=== PATIENT | male | born 1940 | race Hispanic/Latino ===

== ENCOUNTER 2017-06-05 14:40 | Outpatient (CLI) | payer MEDICARE, MEDICAID | END 2017-06-05 14:41 | disposition home or self-care (01) | LOC: BICRAD 14:40 | PROVIDERS: ATTEND Family Medicine | DX: M54.5 Low back pain (principal); M46.86 Other specified inflammatory spondylopathies, lumbar region | CPT/HCPCS: 72100 ==

== ENCOUNTER 2019-03-03 20:21 | Inpatient (IN) | payer MEDICARE, MEDICAID ==
[2019-03-03] MEDS ORDERED: Meclizine HCl 25 MG TAB ONE (21:11)
--- NOTE | 2019-03-03 21:13 | RAD ---
XR Chest 1 View Portable HISTORY: Dizziness, weakness COMPARISON: None FINDINGS: The heart size is normal. The lungs are well expanded without focal areas of consolidation, pneumothorax or pleural effusions. IMPRESSION: No radiographic evidence of acute cardiopulmonary process.
[2019-03-03 21:23] LABS: Hemoglobin 13.3 g/dL (14.0-18.0); Mean Corpuscular Hemoglobin 31.6 pg (27.0-31.0); Mean Corpuscular Volume 92.8 fL (78.0-98.0); Mean Platelet Volume 7.3 fL (7.4-10.4); Platelet Count 191 thou/uL (130-400); RBC Distribution Width 11.6 % (11.5-14.5); Red Blood Cell (RBC) Count 4.21 mill/uL (4.70-6.10); White Blood Cell (WBC) Count 14.3 thou/uL (4.8-10.8)
[2019-03-03 21:24] LABS: ALT (SGPT) 15 U/L (8-55); AST (SGOT) 24 U/L (5-34); Alkaline Phosphatase 57 U/L (40-110); Anion Gap 15 mmol/L (10-20); BUN (Urea Nitrogen) 19 mg/dL (8.4-25.7); Bilirubin, Total 0.8 mg/dL (0.2-1.2); Calc. Creatinine Clearance 0 mL/min (70-130); Carbon Dioxide 24 mmol/L (23-31); Chloride 100 mmol/L (98-107); Estimated GFR-MDRD 68; Glucose 230 mg/dL (83-110); Sodium 135 mmol/L (136-145)
[2019-03-03 21:26] LABS: CK (CPK) 415 U/L (30-200); Lipase 5 U/L (8-78)
[2019-03-03 21:32] LABS: Band 25 % (5-11); Lymphocytes 10 % (21-51); MDiff Complete? YES; Monocytes 3 % (0-10); Neutrophil 62 % (42-75)
--- NOTE | 2019-03-03 21:49 | CT ---
CT BRAIN WITHOUT CONTRAST: 03/03/19 HISTORY: Altered mental status with dizziness and weakness. FINDINGS: No evidence of acute infarct, hemorrhage, midline shift, or abnormal extra-axial fluid collections ar e seen. The ventricular size is appropriate and the basilar cisterns patent. The bony calvarium is i ntact. There is mucosal disease in the paranasal sinuses. IMPRESSION: No CT evidence of acute intracranial process. POS: OFF
[2019-03-03 22:18] LABS: Bilirubin Negative (Negative); Blood, Urine Negative (Negative); Clarity Clear (Clear); Glucose, Urine (Dipstick) >=1000 mg/dL (Negative); Leukocyte Negative Leu/uL (Negative); Nitrite Negative (Negative); Protein, Urine (Dipstick) 10 mg/dL (Neg-Trace)
[2019-03-03] MEDS ORDERED: cefTRIAXone\\ROCEPHIN 2 GM VIAL ONE (22:42)
[2019-03-03] MEDS ORDERED: Azithromycin 500 MG VIAL ONE (23:21)
[2019-03-03] MEDS ORDERED: hydrALAZINE 20 MG/ML VIAL SLOW IVP PRN (23:52)
[2019-03-03] MEDS ORDERED: Ondansetron PF 4 MG/2 ML Vial IVP PRN (23:52)
[2019-03-03] MEDS ORDERED: HumaLOG 300 UNITS/3 ML VIAL SC PRN ×2 (23:52)
[2019-03-03] MEDS ORDERED: Ibuprofen 200 MG TAB PO PRN (23:52)
[2019-03-03] MEDS ORDERED: Acetaminophen 500 MG TAB PO PRN (23:52)
[2019-03-03] MEDS ORDERED: Dextrose 5% in Water 1,000 ML IV PRN (23:52)
[2019-03-03] MEDS ORDERED: Dextrose 50% Abboject 50 ML SYRINGE SLOW IVP PRN (23:52)
[2019-03-03] MEDS ORDERED: Ondansetron ODT 4 MG TAB PO PRN (23:52)
[2019-03-03] MEDS ORDERED: Benzonatate 100 MG CAP PO PRN (23:52)
[2019-03-03] MEDS ORDERED: Sodium Chloride 0.9% 1,000 ML IV SCH (23:52)
[2019-03-04 00:55] VITALS: BMI 26.3
--- NOTE | 2019-03-04 02:26 | HP ---
PRIMARY CARE PROVIDER: Brooklyn Engle MD CHIEF COMPLAINT: General weakness, fever, and chills. HISTORY OF PRESENT ILLNESS: This is a 78-year-old male, who presents to [facility] Emergency Department with approximate 3-day history of generalized weakness, chills, fever, dizziness, and poor appetite. The patient's was apparently experiencing similar symptoms over the last several days. No specific travel history, recent fall, injury, or trauma. No recent antibiotic exposure or recent vaccinations. The patient has received the influenza vaccination, but unclear if pneumonia vaccination was received. The patient denied taking any home remedies and no other family members were reported ill other than his . The patient admits to persistent cough, general weakness, and poor appetite. In the emergency room, the patient underwent general evaluation including portable chest x-ray showing no acute infiltrate. The patient was noted with a mild leukocytosis and meeting SIRS criteria. The patient received IV azithromycin and Rocephin in addition to meclizine and intravenous normal saline. PAST MEDICAL HISTORY: 1. Diabetes mellitus, type 2. 2. Hypertension. 3. Hyperlipidemia. 4. Depression. PAST SURGICAL HISTORY: Status post cataract removal. CURRENT MEDICATIONS: 1. Metformin 1000 mg p.o. b.i.d. 2. Lisinopril 5 mg p.o. daily. 3. Lipitor 20 mg p.o. daily. 4. Lantus U-100 35 units subcutaneously daily. ALLERGIES: NO KNOWN DRUG ALLERGIES. FAMILY HISTORY: Positive for diabetes mellitus. SOCIAL HISTORY: The patient resides in [place], [place]. Accompanied by multiple children in the hospital. No current alcohol, tobacco, or illicit drug use. Functional of all activities of daily living. REVIEW OF SYSTEMS: CONSTITUTIONAL: Negative for weight loss or gain, ability to conduct usual activities. SKIN: Negative for rash, itching. EYES: Negative for double vision, pain. ENT/MOUTH: Negative for nose bleeding, neck stiffness, pain, tenderness. CARDIOVASCULAR: Negative for palpitations, dyspnea on exertion, orthopnea. RESPIRATORY: Negative for shortness of breath, wheezing, cough, hemoptysis, fever or night sweats. GASTROINTESTINAL: Negative for poor appetite, abdominal pain, heartburn, nausea, vomiting, constipation, or diarrhea. GENITOURINARY: Negative for urgency, frequency, dysuria, nocturia. MUSCULOSKELETAL: Negative for pain, swelling. NEUROLOGIC/PSYCHIATRIC: Negative for anxiety, depression. ALLERGY/IMMUNOLOGIC: Negative for skin rash, bleeding tendency. Otherwise negative except as stated per HPI. PHYSICAL EXAMINATION: VITAL SIGNS: On admission, blood pressure 114/56, pulse 120, respiratory rate 17, temperature 98.1 degrees Fahrenheit, O2 saturation 94% on room air. GENERAL APPEARANCE: This is a 78-year-old male, ill appearing, alert, responds to questions, in moderate distress. HEENT: Pupils are equal, round, reactive to light and accommodation. Extraocular muscles intact. No scleral icterus. No conjunctival injection. Nares patent. OP is clear. Oral mucosa dry. NECK: Supple. No cervical adenopathy. No thyromegaly. No carotid bruits. No JVD appreciated. Cervical spine with full active and passive range of motion. No meningeal signs noted. CHEST: Occasional coarse breath sound in the bases bilaterally. CARDIOVASCULAR: S1, S2 with tachycardia. No murmur, rub, or gallop appreciated. ABDOMEN: Rounded, soft, nontender, and nondistended. Bowel sounds are positive in all 4 quadrants. There is no hepatosplenomegaly. No abdominal bruits. No rebound or guarding appreciated. EXTREMITIES: Warm and dry with fair turgor. No clubbing, cyanosis, or asymmetric edema appreciated. Pulses palpable distally at the dorsalis pedis, posterior tibial, and popliteal arteries bilaterally. Capillary refill less than 2 seconds. NEUROLOGIC: Cranial nerves 2 through 12 are grossly intact. No focal or lateralizing signs appreciated. PERTINENT LABORATORY AND X-RAY FINDINGS: Sodium 135, potassium 4.0, chloride 100, CO2 of 24, BUN 19, creatinine 1.05, estimated GFR 68, glucose 230, lactic acid level 2.0, calcium 9.0. LFTs within normal limits. Serum ammonia level less than 12. Total CK 415. BNP 32. TSH 0.77. CBC showed a white blood cell count of 14.3, hemoglobin 13.3, hematocrit 39.1, platelet count 191 with 62% neutrophils, 25% bands. D-dimer 0.41. Urinalysis showed positive glucose and ketones. Beta-hydroxybutyrate level 0.63. Influenza A and B antigen, 03/03/2019, negative. Portable chest x-ray dated 03/03/2019, showed no acute cardiopulmonary process. CT of the brain without contrast dated 03/03/2019, showed no acute intracranial process. EKG dated 03/03/2019, by my interpretation shows a sinus tachycardia with heart rates in the low 100s. Normal R-wave progression noted in the precordial leads. Left axis deviation. No acute ST-T wave changes appreciated. ASSESSMENT AND PLAN: 1. Systemic inflammatory response syndrome (SIRS). The patient will be observed on the telemetry unit. Suspect viral etiology given patient's presentation; however, given bandemia, we will continue empiric antibiotic coverage with Rocephin and Zithromax. Continue IV fluid hydration with normal saline at 100 mL/h. Await final blood and urine culture results. 2. Acute bronchitis. See #1 above. Continue mucolytics as needed. 3. Acute kidney injury. Suspect secondary to dehydration. We will continue IV fluids with normal saline as outlined previously. Avoid nephrotoxic agents and limit contrast exposure. Hold lisinopril. 4. Diabetes mellitus type 2. Insulin sliding scale for reflexive coverage. Hold metformin. Serial Accu-Cheks before meals and at bedtime. ADA diet. 5. Generalized weakness. Suspect secondary to #1. Continue supportive management as outlined previously. Consider PT evaluation if not clinically improving in 24 hours. 6. Prophylaxis. SCDs while in bed. Pepcid 20 mg p.o. b.i.d. Pneumonia vaccination prior to discharge. CODE STATUS: Full. Surrogate medical decision maker is patient's daughter. Job ID: [id number]
[2019-03-04 05:16] LABS: Anion Gap 8 mmol/L (10-20); BUN (Urea Nitrogen) 15 mg/dL (8.4-25.7); Calc. Creatinine Clearance 73 mL/min (70-130); Calcium 8.6 mg/dL (7.8-10.44); Carbon Dioxide 27 mmol/L (23-31); Chloride 105 mmol/L (98-107); Estimated GFR-MDRD Greater than 90; Glucose 129 mg/dL (83-110); Potassium 3.6 mmol/L (3.5-5.1); Sodium 136 mmol/L (136-145)
[2019-03-04 05:25] LABS: Band 28 % (5-11); Hemoglobin 11.7 g/dL (14.0-18.0); Lymphocytes 7 % (21-51); MDiff Complete? YES; Mean Corpuscular Hemoglobin 31.7 pg (27.0-31.0); Mean Platelet Volume 7.2 fL (7.4-10.4); Monocytes 5 % (0-10); Neutrophil 60 % (42-75); Platelet Count 173 thou/uL (130-400); RBC Distribution Width 11.6 % (11.5-14.5); Red Blood Cell (RBC) Count 3.69 mill/uL (4.70-6.10); White Blood Cell (WBC) Count 15.7 thou/uL (4.8-10.8)
[2019-03-04] MEDS ORDERED: Lisinopril 5 MG TAB PO SCH (09:00)
[2019-03-04] MEDS ORDERED: Prevnar 13-Val Conj/PF 0.5 ML SYRINGE IM ONE (09:00)
[2019-03-04] MEDS: NS 0.9% w/ 20 MEQ KCL 1,000 ML/1,000 ML BAG IV SCH ×2 (09:56→23:47)
[2019-03-04] MEDS: Lactinex Tablet PO SCH (09:57)
[2019-03-04] MEDS: Azithromycin 250 MG TAB PO SCH (09:57)
[2019-03-04] MEDS: cefTRIAXone\\ROCEPHIN 2 GM in Sodium Chloride 0.9% 100 ML IVPB SCH (09:57)
[2019-03-04] MEDS: metFORMIN 500 MG TAB PO SCH ×2 (09:57→16:54)
[2019-03-04] MEDS: Famotidine 20 MG TAB PO SCH ×2 (09:57→20:31)
--- NOTE | 2019-03-04 11:30 | PDOC.HOSPP ---
- Subjective Encounter Date: 03/04/19 Encounter Time: 11:30 Subjective: Patient reports that he feels better. Continues to report intermittent lightheadedness. No N/V/D/C. No shortness of breath or chest pain. Does report cough with some white sputum. - Objective Vital Signs & Weight: Vital Signs (12 hours) Temp Pulse Resp BP BP Pulse Ox 03/04/19 11:15 97.9 F 94 15 113/58 L 94 L 03/04/19 10:05 93 L 03/04/19 08:26 97.6 F 103 H 16 111/55 L 93 L 03/04/19 03:52 99.2 F 107 H 18 109/59 L 95 03/03/19 23:48 99.8 F H 115 H 20 112/67 97 Weight Weight 148 lb 12.992 oz I&O: 03/03/19 03/04/19 03/05/19 06:59 06:59 06:59 Intake Total 150 880 Output Total 350 Balance -200 880 Result Diagrams: 03/04/19 04:33 03/04/19 04:33 Additional Labs: Accuchecks 03/04/19 03/03/19 03/03/19 10:27 21:11 20:26 POC Glucose 165 H 211 H 220 H Hospitalist ROS - Medication Medications: Active Medications Generic Name Dose Route Start Last Admin Trade Name Freq PRN Reason Stop Dose Admin Acidophilus 1 tab 03/04/19 09:00 03/04/19 09:57 Floranex PO 1 tab DAILY SANJAY Administration Azithromycin 500 mg 03/04/19 09:00 03/04/19 09:57 Zithromax PO 03/07/19 09:01 500 mg DAILY SANJAY Administration Benzonatate 100 mg 03/03/19 23:52 03/04/19 00:39 Tessalon PO 100 mg Q6H PRN Administration Cough Famotidine 20 mg 03/04/19 09:00 03/04/19 09:57 Pepcid PO 20 mg BID SANJAY Administration Potassium Chloride/Sodium Chloride 1,000 ml in 1,000 mls @ 75 mls/hr 03/04/19 08:15 03/04/19 09:56 Ns 0.9% W/ 20 Meq Kcl IV 1,000 mls .[id number] SANJAY Administration Ceftriaxone Sodium 2 gm/ 100 mls @ 200 mls/hr 03/04/19 09:00 03/04/19 09:57 Sodium Chloride IVPB 100 mls Q24HR SANJAY Administration Metformin HCl 1,000 mg 03/04/19 08:00 03/04/19 09:57 Glucophage PO 1,000 mg BID-WM SANJAY Administration - Exam General Appearance: NAD, awake alert Eye: PERRL, anicteric sclera ENT: normocephalic atraumatic, no oropharyngeal lesions Neck: supple, symmetric Heart: no murmur, normal peripheral pulses Heart - other findings: tachycardia Respiratory: CTAB, no wheezes, normal chest expansion Gastrointestinal: soft, non-tender, non-distended Hosp A/P (1) Sepsis Code(s): A41.9 - SEPSIS, UNSPECIFIED ORGANISM Status: Acute Qualifiers: Sepsis type: sepsis due to unspecified organism Sepsis acute organ dysfunction status: without acute organ dysfunction Qualified Code(s): A41.9 - Sepsis, unspecified organism Plan: Has 28% bands today with tachycardia Change to inpatient status Continue IV abx If bandemia better tomorrow and clinically improved, will switch to PO ABX and likely DC home as the patient states he has plans to go to [place] tomorrow and is requesting to be discharged soon (2) DM type 2 (diabetes mellitus, type 2) Status: Chronic Qualifiers: Diabetes mellitus senior care insulin use: with senior care use Diabetes mellitus complication status: without complication Qualified Code(s): E11.9 - Type 2 diabetes mellitus without complications; Z79.4 - terminal carman (current) use of insulin Plan: Diabetic diet and SSI Basal insulin Monitor sugars and adjust regimen (3) HTN (hypertension) Code(s): I10 - ESSENTIAL (PRIMARY) HYPERTENSION Status: Chronic Qualifiers: Hypertension type: essential hypertension Qualified Code(s): I10 - Essential (primary) hypertension Plan: Stable BP Hold meds for now due to risk of septic shock (4) Dyslipidemia Code(s): E78.5 - HYPERLIPIDEMIA, UNSPECIFIED Status: Chronic - Plan out of bed/ambulate, DVT proph w/heparin
[2019-03-04] MEDS ORDERED: Insulin Glargine 20 UNITS in Pre-Filled Syringe 1 EACH SC SCH (21:00)
[2019-03-04] MEDS: Diabetic Tussin 200 MG/10 ML UDCUP PO PRN (23:49)
[2019-03-05 04:16] LABS: #Lymphocytes 1.6 thou/uL (1.20-3.40); #Monocytes 0.7 thou/uL (0.11-0.59); #Neutrophils 13.1 thou/uL (1.40-6.50); %Basophils 0.1 % (0.0-1.0); %Eosinophils 0.2 % (0.0-10.0); %Lymphocytes 10.1 % (21.0-51.0); %Monocytes 4.5 % (0.0-10.0); %Neutrophils 85.1 % (42.0-75.0); Hemoglobin 11.4 g/dL (14.0-18.0); Mean Corpuscular HGB CONC 34.1 g/dL (32.0-36.0); Mean Corpuscular Hemoglobin 31.9 pg (27.0-31.0); Mean Corpuscular Volume 93.6 fL (78.0-98.0); Mean Platelet Volume 7.7 fL (7.4-10.4); Platelet Count 172 thou/uL (130-400); RBC Distribution Width 11.4 % (11.5-14.5); Red Blood Cell (RBC) Count 3.59 mill/uL (4.70-6.10); White Blood Cell (WBC) Count 15.4 thou/uL (4.8-10.8)
[2019-03-05 04:40] LABS: ALT (SGPT) 19 U/L (8-55); AST (SGOT) 38 U/L (5-34); Albumin 3.1 g/dL (3.4-4.8); Alkaline Phosphatase 54 U/L (40-110); Anion Gap 11 mmol/L (10-20); BUN (Urea Nitrogen) 12 mg/dL (8.4-25.7); Bilirubin, Total 0.6 mg/dL (0.2-1.2); Calc. Creatinine Clearance 75 mL/min (70-130); Calcium 8.6 mg/dL (7.8-10.44); Carbon Dioxide 23 mmol/L (23-31); Chloride 106 mmol/L (98-107); Estimated GFR-MDRD Greater than 90; Globulin 3.2 g/dL (2.4-3.5); Glucose 114 mg/dL (83-110); Potassium 3.7 mmol/L (3.5-5.1); Protein, Total 6.3 g/dL (5.8-8.1); Sodium 136 mmol/L (136-145)
[2019-03-05] MEDS: Diabetic Tussin 200 MG/10 ML UDCUP PO PRN (06:04)
[2019-03-05 08:12] VITALS: BP 119/60; TEMP 98.5
[2019-03-05] MEDS: cefTRIAXone\\ROCEPHIN 2 GM in Sodium Chloride 0.9% 100 ML IVPB SCH (08:13)
[2019-03-05] MEDS: Famotidine 20 MG TAB PO SCH (08:13)
[2019-03-05] MEDS: Azithromycin 250 MG TAB PO SCH (08:13)
[2019-03-05] MEDS: metFORMIN 500 MG TAB PO SCH (08:13)
[2019-03-05] MEDS: Lactinex Tablet PO SCH (08:14)
[2019-03-05] MEDS: NS 0.9% w/ 20 MEQ KCL 1,000 ML/1,000 ML BAG IV SCH (09:26)
--- NOTE | 2019-03-05 16:14 | EKG ---
Test Reason : Blood Pressure : / mmHG Vent. Rate : 107 BPM Atrial Rate : 107 BPM P-R Int : 180 ms QRS Dur : 088 ms QT Int : 330 ms P-R-T Axes : 056 -41 030 degrees QTc Int : 440 ms Sinus tachycardia Left axis deviation Abnormal ECG Confirmed by DANNY PAIGE MD ([id number]), pictures editor CHIRSTIANA MEJIA ([id number]) on 03/05/2019 4:13:10 PM Referred By: Confirmed By:DANNY PAIGE MD
== END 2019-03-05 10:33 | disposition home or self-care (01) | DRG 872 ==
LOC: ERS 20:21 → OBSVTOIN 23:46 → 2SW 23:46 → 2NO 03-04 11:31
PROVIDERS: ADMIT Family Medicine; ATTEND Family Medicine
DX: A41.9 Sepsis, unspecified organism (principal); N17.9 Acute kidney failure, unspecified; J20.9 Acute bronchitis, unspecified; E11.9 Type 2 diabetes mellitus without complications; I10 Essential (primary) hypertension; E78.5 Hyperlipidemia, unspecified; F32.9 Major depressive disorder, single episode, unspecified; Z79.4 Long term (current) use of insulin; Z79.899 Other long term (current) drug therapy; Z28.21 Immunization not carried out because of patient refusal
CPT/HCPCS: 36415; 36416; 70450; 71045; 80048; 80053; 81003; 82010; 82140; 82550; 83605; 83690; 83880; 84443; 84484; 85007; 85025; 85027; 85379; 87040; 87086; 87633; 87804; 93005; J0456; J0696; J1815; J1956; J3480; J3490; J8597

== ENCOUNTER 2019-12-31 17:47 | Emergency (ER) | payer MEDICARE, MEDICAID, OTHER ==
[2020-01-01 14:57] LABS: SARS-CoV-2 MS2 Positive; SARS-CoV-2 N Gene Negative; SARS-CoV-2 S Gene Negative; SARS-CoV-2 by NAA Not Detected (NotDetected); SARS-CoV-2 orf1ab Negative
== END 2019-12-31 18:30 | disposition home or self-care (01) ==
LOC: ERS 17:47
DX: R19.7 Diarrhea, unspecified (principal); R05 Cough; Z20.828 Contact with and (suspected) exposure to other viral communicable diseases; E11.9 Type 2 diabetes mellitus without complications; F32.9 Major depressive disorder, single episode, unspecified; Z79.84 Long term (current) use of oral hypoglycemic drugs; Z79.899 Other long term (current) drug therapy; Z79.4 Long term (current) use of insulin
CPT/HCPCS: 99283; U0003; 87635

== ENCOUNTER 2021-03-26 08:47 | Outpatient (CLI) | payer MEDICARE, MEDICAID ==
[2021-03-26 10:21] LABS: Estimated GFR-MDRD - POC Greater than 90
== END 2021-03-26 08:48 | disposition home or self-care (01) ==
LOC: CT 08:47
PROVIDERS: ATTEND Internal Medicine Cardiovascular Disease
DX: I65.23 Occlusion and stenosis of bilateral carotid arteries (principal)
CPT/HCPCS: 70498; 82565

== ENCOUNTER 2021-04-18 14:45 | Inpatient (IN) | payer MEDICARE, MEDICAID ==
[2021-04-20] MEDS ORDERED: Phenylephrine 10 MG/ML VIAL ONE (06:07)
[2021-04-20] MEDS ORDERED: Fentanyl 100 MCG/2 ML VIAL ONE (06:07)
[2021-04-20] MEDS ORDERED: Heparin 5,000 UNITS/ML VIAL ONE (06:32)
[2021-04-20] MEDS ORDERED: Bupivacaine PF 0.5% 30 ML VIAL ONE (06:33)
[2021-04-20] MEDS ORDERED: Xylocaine 1% w/ Epi 1:100K 10 ML VIAL ONE (06:33)
[2021-04-20] MEDS ORDERED: Lidocaine 1% PF 5 ML VIAL ONE ×2 (06:50→07:36)
[2021-04-20] MEDS ORDERED: ceFAZolin 2 GM/Dextrose 50 ML IVPB ONE ×2 (07:22→18:36)
[2021-04-20] MEDS ORDERED: PROPOFOL 200 MG/20 ML VIAL ONE (07:36)
[2021-04-20] MEDS ORDERED: Glycopyrrolate 0.2 MG/ML 5 ML SYRINGE ONE (07:36)
[2021-04-20] MEDS ORDERED: Dexamethasone 20 MG/5 ML VIAL ONE (07:36)
[2021-04-20] MEDS ORDERED: PHENYLEPHRINE-NS 100 MCG/ML 10 ML SYRINGE ONE ×3 (07:36→11:06)
[2021-04-20] MEDS ORDERED: Ondansetron PF 4 MG/2 ML Vial ONE (07:36)
[2021-04-20] MEDS ORDERED: Rocuronium Bromide 10 MG/ML (10ML VIAL) ONE (07:36)
[2021-04-20] MEDS ORDERED: Protamine Sulfate 50 MG/5 ML VIAL ONE (08:42)
[2021-04-20] MEDS ORDERED: Acetaminophen 325 MG TAB PO PRN (09:24)
[2021-04-20] MEDS ORDERED: Insulin Regular 300 UNITS/3 ML VIAL SC PRN (09:24)
[2021-04-20] MEDS ORDERED: Promethazine HCl 25 MG/ML VIAL IM PRN ×2 (09:24→09:25)
[2021-04-20] MEDS ORDERED: Ondansetron PF 4 MG/2 ML Vial IVP PRN (09:24)
[2021-04-20] MEDS ORDERED: Fentanyl 100 MCG/2 ML VIAL SLOW IVP PRN ×2 (09:24)
[2021-04-20] MEDS ORDERED: DOPamine 400 MG/D5W 250 ML 250 ML IVPB PRN (09:24)
[2021-04-20] MEDS ORDERED: Dextrose 50% Abboject 50 ML SYRINGE SLOW IVP PRN (09:24)
[2021-04-20] MEDS ORDERED: Nitroglycerin 50 MG/250 ML BOT 250 ML IVPB PRN (09:24)
[2021-04-20] MEDS ORDERED: Sodium Chloride 0.9% 1,000 ML IV SCH (09:24)
[2021-04-20] MEDS ORDERED: niCARdipine 25 MG in Sodium Chloride 0.9% 250 ML 240 ML IVPB PRN (09:24)
[2021-04-20] MEDS ORDERED: Dextrose 5% in Water 1,000 ML IV PRN (09:24)
[2021-04-20] MEDS ORDERED: HYDROcodone/Acetaminophen 5/325 mg Tablet PO PRN ×2 (09:24)
[2021-04-20] MEDS ORDERED: Phenylephrine 40 MG in Sodium Chloride 0.9% 250 ML 246 ML IVPB PRN ×2 (09:24→11:10)
[2021-04-20] MEDS ORDERED: Meperidine HCl/PF 25 MG/ML VIAL SLOW IVP PRN (09:25)
[2021-04-20] MEDS ORDERED: Promethazine HCl 25 MG/ML VIAL IVPB PRN (09:25)
[2021-04-20] MEDS ORDERED: Ondansetron HCl/PF 4 MG/2 ML Vial IVP PRN (09:25)
[2021-04-20 11:38] LABS: #Eosinphils 0.1 thou/uL (0.0-0.7); #Monocytes 0.3 thou/uL (0.11-0.59); #Neutrophils 11.1 thou/uL (1.40-6.50); %Basophils 0.4 % (0.0-1.0); %Eosinophils 0.5 % (0.0-10.0); %Lymphocytes 8.3 % (21.0-51.0); %Monocytes 2.5 % (0.0-10.0); %Neutrophils 88.3 % (42.0-75.0); Hemoglobin 12.7 g/dL (14.0-18.0); Mean Corpuscular HGB CONC 34.1 g/dL (32.0-36.0); Mean Corpuscular Hemoglobin 32.6 pg (27.0-31.0); Mean Corpuscular Volume 95.7 fL (78.0-98.0); Mean Platelet Volume 6.5 fL (7.4-10.4); Platelet Count 191 thou/uL (130-400); RBC Distribution Width 11.9 % (11.5-14.5); White Blood Cell (WBC) Count 12.6 thou/uL (4.8-10.8)
[2021-04-20 12:10] LABS: Anion Gap 13 mmol/L (10-20); BUN (Urea Nitrogen) 19 mg/dL (8.4-25.7); Calc. Creatinine Clearance 81 mL/min (70-130); Calcium 8.5 mg/dL (7.8-10.44); Carbon Dioxide 21 mmol/L (23-31); Chloride 106 mmol/L (98-107); Glucose 197 mg/dL (83-110); Potassium 4.1 mmol/L (3.5-5.1); Sodium 136 mmol/L (136-145)
[2021-04-20] MEDS: ceFAZolin 2 GM/Dextrose 50 ML 2 GM in Premix Bag 1 BAG IVPB SCH (18:47)
[2021-04-20] MEDS ORDERED: Lantus 1000 UNITS/10 ML VIAL SC SCH (21:00)
[2021-04-20] MEDS ORDERED: Atorvastatin Calcium 10 MG TAB PO SCH (21:00)
[2021-04-20 22:17] VITALS: BMI 24.5
[2021-04-21] MEDS: ceFAZolin 2 GM/Dextrose 50 ML 2 GM in Premix Bag 1 BAG IVPB SCH ×2 (01:00→07:55)
[2021-04-21] MEDS ORDERED: Aspirin Chewable 81 MG TAB PO SCH (09:00)
[2021-04-21 10:01] VITALS: TEMP 98.6
== END 2021-04-21 09:55 | disposition home or self-care (01) | DRG 39 ==
LOC: SURG A 04-20 05:54 → CCU 04-20 20:06
PROVIDERS: ADMIT Thoracic Surgery (Cardiothoracic Vascular Surgery); ATTEND Thoracic Surgery (Cardiothoracic Vascular Surgery)
PROC: 03CH0ZZ Extirpation of Matter from Right Common Carotid Artery, Open Approach (ICD-10-PCS; principal; 2021-04-20)
PROC: 03UH0JZ Supplement Right Common Carotid Artery with Synthetic Substitute, Open Approach (ICD-10-PCS; 2021-04-20)
DX: I65.23 Occlusion and stenosis of bilateral carotid arteries (principal); E13.9 Other specified diabetes mellitus without complications; Z20.822 Contact with and (suspected) exposure to COVID-19; I10 Essential (primary) hypertension; Z79.4 Long term (current) use of insulin; Z79.899 Other long term (current) drug therapy; Z87.891 Personal history of nicotine dependence
CPT/HCPCS: 36415; 36416; 80048; 85025; 85027; 93005; 93010; C1768; J0690; J1100; J1642; J1644; J1815; J2370; J2405; J2704; J2720; J3010; J7050; S0020; U0003; U0005

== ENCOUNTER 2021-04-18 15:06 | Outpatient (CLI) | payer MEDICARE, MEDICAID ==
[2021-04-18 16:30] LABS: Hemoglobin 13.7 g/dL (13.5-17.5); Mean Corpuscular HGB CONC 32.5 g/dL (32.0-36.0); Mean Corpuscular Hemoglobin 30.9 pg (27.0-33.0); Mean Corpuscular Volume 94.8 fl (81.2-95.1); Mean Platelet Volume 9.7 fl (7.4-10.4); Platelet Count 230 10x3/uL (150-450); RBC Distribution Width 12.4 % (11.5-14.5); Red Blood Cell (RBC) Count 4.44 10x6/uL (4.32-5.72); White Blood Cell (WBC) Count 8.9 10x3/uL (3.5-10.5)
[2021-04-18 16:40] LABS: Anion Gap 17 mmol/L (10-20); BUN (Urea Nitrogen) 20 mg/dL (8.4-25.7); Calc. Creatinine Clearance 0 mL/min (70-130); Calcium 9.6 mg/dL (7.8-10.44); Carbon Dioxide 26 mmol/L (23-31); Chloride 101 mmol/L (98-107); Glucose 178 mg/dL (83-110); Potassium 4.5 mmol/L (3.5-5.1); Sodium 139 mmol/L (136-145)
[2021-04-19 13:39] LABS: SARS-CoV-2 PCR by NAA Not Detected (NotDetected)
== END 2021-04-18 15:07 | disposition home or self-care (01) ==
LOC: LABBT 15:06
PROVIDERS: ATTEND Thoracic Surgery (Cardiothoracic Vascular Surgery)
DX: Z01.812 Encounter for preprocedural laboratory examination (principal); Z20.822 Contact with and (suspected) exposure to COVID-19
CPT/HCPCS: 80048; 85027; U0003; U0005

== ENCOUNTER 2022-02-25 10:10 | Outpatient (CLI) | payer OTHER ==
[~2022-02-25 10:10] MED LIST: Magnevist 469MG/ML 20 ML VIAL ONE
== END 2022-02-25 10:11 | disposition home or self-care (01) ==
LOC: MRI 10:10
PROVIDERS: ATTEND Family Medicine
DX: R29.898 Other symptoms and signs involving the musculoskeletal system (principal)
CPT/HCPCS: 70553; A9579

== ENCOUNTER 2022-12-21 16:55 | Emergency (ER) | payer OTHER, MEDICAID ==
[2022-12-21 19:12] LABS: #Monocytes 0.9 thou/uL (0.11-0.59); #Neutrophils 7.1 thou/uL (1.40-6.50); %Basophils 0.4 % (0.0-1.0); %Eosinophils 0.1 % (0.0-10.0); %Monocytes 10.1 % (0.0-10.0); %Neutrophils 83.2 % (42.0-75.0); Hematocrit 38.8 % (42.0-52.0); Hemoglobin 13.4 g/dL (14.0-18.0); Mean Corpuscular HGB CONC 34.5 g/dL (32.0-36.0); Mean Corpuscular Hemoglobin 31.4 pg (27.0-31.0); Mean Corpuscular Volume 90.9 fl (78.0-98.0); Mean Platelet Volume 9.3 fL (7.4-10.4); Platelet Count 195 10x3/uL (130-400); RBC Distribution Width 12.6 % (11.5-14.5); Red Blood Cell (RBC) Count 4.27 mill/uL (4.70-6.10); White Blood Cell (WBC) Count 8.5 10x3/uL (4.8-10.8)
[2022-12-21] MEDS ORDERED: Morphine 4 MG/ML VIAL ONE (19:23)
[2022-12-21 19:33] LABS: SARS-CoV-2 NAA Rapid Test DETECTED (NotDetected)
[2022-12-21 19:35] LABS: ALT (SGPT) 12 U/L (8-55); AST (SGOT) 16 U/L (5-34); Albumin 4.1 g/dL (3.4-4.8); Alkaline Phosphatase 58 U/L (40-110); Anion Gap 17 mmol/L (10-20); BUN (Urea Nitrogen) 18 mg/dL (8.4-25.7); Bilirubin, Total 0.4 mg/dL (0.2-1.2); CK (CPK) 69 U/L (30-200); Calc. Creatinine Clearance 0 mL/min (70-130); Calcium 9.9 mg/dL (7.8-10.44); Carbon Dioxide 25 mmol/L (23-31); Chloride 98 mmol/L (98-107); Estimated GFR 81; Globulin 3.7 g/dL (2.4-3.5); Glucose 200 mg/dL (83-110); Potassium 4.5 mmol/L (3.5-5.1); Protein, Total 7.8 g/dL (5.8-8.1); Sodium 135 mmol/L (136-145)
[2022-12-21] MEDS ORDERED: Acetaminophen 500 MG TAB ONE (19:35)
[2022-12-21] MEDS ORDERED: Ketorolac Tromethamine 30 MG/ML VIAL ONE (19:35)
[2022-12-21 19:45] LABS: Troponin I Less than 0.010 ng/mL (< 0.028)
== END 2022-12-21 20:49 | disposition home or self-care (01) ==
LOC: ERS 16:55
DX: U07.1 COVID-19 (principal); E11.9 Type 2 diabetes mellitus without complications; Z79.84 Long term (current) use of oral hypoglycemic drugs; Z79.4 Long term (current) use of insulin; Z79.899 Other long term (current) drug therapy
CPT/HCPCS: 0240U; 70450; 71045; 80053; 82550; 82962; 84484; 85025; 85379; 87040; 93005; 36415; 36416; 96361; 96374; J1885; J2270